=== PATIENT | male | born 1945 | race Hispanic/Latino ===

== ENCOUNTER 2018-12-12 21:14 | Inpatient (IN) | payer MEDICARE, OTHER ==
[2018-12-12] MEDS ORDERED: Clindamycin/D5W 900 mg/50 ml Premix Bag ONE (23:17)
[2018-12-12 23:25] LABS: ALT (SGPT) Less than 7 U/L (8-55); AST (SGOT) 8 U/L (5-34); Albumin 3.2 g/dL (3.4-4.8); Alkaline Phosphatase 73 U/L (40-110); Anion Gap 19 mmol/L (10-20); BUN (Urea Nitrogen) 31 mg/dL (8.4-25.7); Bilirubin, Total 0.5 mg/dL (0.2-1.2); Calc. Creatinine Clearance 0 mL/min (70-130); Calcium 8.2 mg/dL (7.8-10.44); Carbon Dioxide 22 mmol/L (23-31); Chloride 99 mmol/L (98-107); Estimated GFR-MDRD 6; Globulin 3.4 g/dL (2.4-3.5); Glucose 97 mg/dL (83-110); Potassium 4.7 mmol/L (3.5-5.1); Protein, Total 6.6 g/dL (5.8-8.1); Sodium 135 mmol/L (136-145)
[2018-12-13 01:11] VITALS: BMI 24.8
[2018-12-13] MEDS ORDERED: Clindamycin/D5W 900 MG in Premix Bag 1 BAG IVPB SCH (08:00)
[2018-12-13] MEDS: Sodium Chloride 0.9% 1,000 ML IV SCH ×3 (08:35→18:39)
[2018-12-13] MEDS: Morphine 2 MG/ML SYRINGE SLOW IVP PRN ×2 (08:35→16:16)
--- NOTE | 2018-12-13 09:03 | HP ---
CHIEF COMPLAINT: Neck pain. HISTORY OF PRESENT ILLNESS: The patient is a 73-year-old male, who speaks Kiswahili only, who presented to the emergency room with above-mentioned complaints. Apparently, he had dental procedure done 3 days ago. He had two teeth pulled out and he started having some pain in the neck. There was no fever or chills. The pain was rated around 2 to 3. Also, he complained about some headache and difficulty of swallowing. Headache was mainly located in the occipital area. Otherwise, he does not have much complaints to offer except for inability to eat secondary to the painful process going on in his neck. PAST MEDICAL HISTORY: Positive for 1. Tremor. 2. Hypertension. 3. End-stage renal disease, on hemodialysis. 4. Diabetes mellitus type 2. PAST SURGICAL HISTORY: 1. Left shoulder surgery. 2. Right arm shunt for hemodialysis. SOCIAL HISTORY: He never smoked. He does not drink alcohol. He does not use any drugs. FAMILY HISTORY: The patient does not remember how his parents at what ages. ALLERGIES: NONE. MEDICATIONS: 1. Amlodipine 10 mg once a day. 2. Aspirin 81 mg once a day. 3. Clonazepam 0.5 mg at bedtime. PRIMARY CARE PHYSICIAN: Dr. Sharp from [facility]. SURROGATE DECISION MAKER: The patient's daughter Mariposa Garcia. REVIEW OF SYSTEMS: All 14 systems were reviewed and only those symptoms mentioned in the HPI are positive, otherwise negative. PHYSICAL EXAMINATION: VITAL SIGNS: Blood pressure is 133/54, pulse is 72, temperature is 97.2, O2 saturation is 91% on room air. GENERAL: He is not in any distress during my visit. HEENT: His head is atraumatic and normocephalic. Eyes are PERRLA. Sclerae are nonicteric. Conjunctivae pinkish. Oral mucosa is moist. He is not able to open his mouth all the way and protrude his tongue. NECK: There is an approximately 1 to 1.5 inch mass in the upper part of the neck just under the mandibular bone on the right side, tender to touch and palpation. LUNGS: Clear. HEART: S1, S2 normal. No S3. No S4. No any murmur. ABDOMEN: Soft and nontender. Bowel sounds are present. No organomegaly. EXTREMITIES: No clubbing, cyanosis or edema. NEUROLOGIC: He is alert and oriented x4. There is no any motor deficits present. Cranial nerves are intact. LABORATORY DATA: Labs showed sodium of 135, potassium 4.7, chloride 99, CO2 of 22, BUN 31, creatinine 8.74, ALT less than 7, albumin 3.2, and the rest of chemistry is within normal limits. EKG is not present on the chart. CBC showed white count of 12.0, hemoglobin 11.7, hematocrit 35.7. CT of the neck soft tissue with contrast showed a large heterogeneously enhancing fluid collection in the right side of the floor of the mouth extending into the right submandibular region, most likely representing an abscess and airways remain patent. Also there is reactive adenopathy in the right side of the neck. IMPRESSION: 1. Post dental procedure of right-sided neck abscess. 2. Hypertension. 3. Diabetes mellitus. 4. End-stage renal disease, on hemodialysis. PLAN: Admission to the medical floor. Condition is fair. Activity bedrest and bathroom privileges with assistance. IV fluids, normal saline 100 mL/hour, morphine 2 mg every 4 hours IV push slowly for pain management. Oral surgeon consult and Nephrology consult for hemodialysis if it is necessary on Saturday. Apparently, he had dialysis on Saturday. Job ID: [id number]
[2018-12-13] MEDS ORDERED: PHENYLEPHRINE-NS 100 MCG/ML 10 ML SYRINGE ONE (10:40)
[2018-12-13] MEDS ORDERED: Rocuronium Bromide 10 MG/ML (10ML VIAL) ONE (10:40)
[2018-12-13] MEDS ORDERED: Lidocaine 1% PF 5 ML VIAL ONE (10:40)
[2018-12-13] MEDS ORDERED: Glycopyrrolate 0.2 MG/ML 5 ML SYRINGE ONE (10:40)
[2018-12-13] MEDS ORDERED: Ondansetron PF 4 MG/2 ML Vial ONE (10:40)
[2018-12-13] MEDS ORDERED: Labetalol HCl 100 MG/20 ML VIAL ONE ×2 (10:40→12:47)
[2018-12-13] MEDS ORDERED: Metoclopramide HCl 10 MG/2 ML VIAL ONE (10:40)
[2018-12-13] MEDS ORDERED: Lidocaine 1% w/Epinephrine 1:100K 20 ML VIAL ONE (10:49)
[2018-12-13] MEDS ORDERED: Chlorhexidine Gluconate 15 ML UDCUP SSP ONE (10:49)
[2018-12-13] MEDS ORDERED: Fentanyl 100 MCG/2 ML VIAL ONE (10:51)
[2018-12-13] MEDS ORDERED: Phenylephrine HCL 10 MG/ML VIAL ONE (10:51)
[2018-12-13] MEDS ORDERED: Famotidine/PF 20 mg/2ml Vial ONE (10:51)
[2018-12-13] MEDS ORDERED: Bacitracin Zinc Ointment 30 gm TUBE ONE (10:52)
[2018-12-13] MEDS ORDERED: Sodium Chloride 0.9% 10 ML ONE (11:45)
[2018-12-13] MEDS ORDERED: Promethazine HCl 25 MG/ML VIAL SLOW IVP PRN (12:03)
[2018-12-13] MEDS ORDERED: PACU-Morphine 4MG/ML VIAL SLOW IVP PRN (12:03)
[2018-12-13] MEDS ORDERED: Promethazine HCl 25 MG/ML VIAL IM PRN (12:03)
[2018-12-13] MEDS ORDERED: hydrALAZINE 20 MG/ML VIAL ONE (12:47)
[2018-12-13] MEDS: Chlorhexidine Gluconate 15 ML UDCUP SSP SCH (20:07)
[2018-12-13] MEDS ORDERED: Prevnar 13-Val Conj/PF 0.5 ML SYRINGE IM ONE (21:00)
[2018-12-13] MEDS ORDERED: FLU VACC TS2019-20(65YR UP)/PF 180 MCG/0.5 ML SYRINGE IM ONE (21:00)
[2018-12-14] MEDS: Sodium Chloride 0.9% 1,000 ML IV SCH ×3 (03:53→21:56)
[2018-12-14 05:29] LABS: #Basophils 0.1 thou/uL (0.0-0.2); #Eosinphils 0.1 thou/uL (0.0-0.7); #Lymphocytes 1.5 thou/uL (1.20-3.40); #Monocytes 1.4 thou/uL (0.11-0.59); #Neutrophils 9.1 thou/uL (1.40-6.50); %Basophils 0.5 % (0.0-1.0); %Eosinophils 0.4 % (0.0-10.0); %Lymphocytes 12.2 % (21.0-51.0); %Monocytes 11.2 % (0.0-10.0); %Neutrophils 75.7 % (42.0-75.0); Hemoglobin 10.3 g/dL (14.0-18.0); Mean Corpuscular HGB CONC 34.1 g/dL (32.0-36.0); Mean Corpuscular Hemoglobin 35.5 pg (27.0-31.0); Mean Platelet Volume 7.9 fL (7.4-10.4); Platelet Count 200 thou/uL (130-400); RBC Distribution Width 12.2 % (11.5-14.5); Red Blood Cell (RBC) Count 2.91 mill/uL (4.70-6.10)
[2018-12-14 05:51] LABS: Anion Gap 18 mmol/L (10-20); BUN (Urea Nitrogen) 45 mg/dL (8.4-25.7); Calc. Creatinine Clearance 6 mL/min (70-130); Calcium 7.9 mg/dL (7.8-10.44); Carbon Dioxide 23 mmol/L (23-31); Chloride 100 mmol/L (98-107); Estimated GFR-MDRD 5; Glucose 104 mg/dL (83-110); Potassium 4.8 mmol/L (3.5-5.1); Sodium 136 mmol/L (136-145)
[2018-12-14] MEDS ORDERED: Vancomycin HCl 1 GM in Premix Bag 1 BAG IVPB SCH (08:15)
[2018-12-14] MEDS ORDERED: Vancomycin HCl 500 MG in Sodium Chloride 0.9% 100 ML IVPB SCH (08:15)
[2018-12-14] MEDS ORDERED: HOLD VANCOMYCIN FOR LEVEL >20 FS SCH (08:15)
[2018-12-14] MEDS ORDERED: Vancomycin HCl 250 MG in Sodium Chloride 0.9% 100 ML IVPB SCH (08:15)
[2018-12-14] MEDS ORDERED: Vancomycin HCl 750 MG in Sodium Chloride 0.9% 250 ML 250 ML IVPB SCH (08:15)
[2018-12-14] MEDS: Chlorhexidine Gluconate 15 ML UDCUP SSP SCH ×2 (09:23→20:04)
[2018-12-14] MEDS: Piperacillin/Tazobactam 2.25 GM in Sodium Chloride 0.9% 100 ML IVPB SCH ×2 (11:38→21:56)
--- NOTE | 2018-12-14 12:30 | PRG ---
DATE OF SERVICE: 12/14/2018 SUBJECTIVE: The patient is seen and examined at the bedside. His daughter is present in the room during my visit. There was no any unexpected events overnight. He had his surgery done yesterday by ENT. OBJECTIVE: VITAL SIGNS: Blood pressure is 126/61, pulse is 78, temperature is 98.8, respirations 16, O2 saturation is 96% on room air. HEENT: His head is atraumatic and normocephalic. Eyes are PERRLA. Sclerae are nonicteric. Oral mucosa is moist. He has a problem to open his mouth all way because of the recent surgery. There is a drain in the right side of the neck and a dressing over his neck. LUNGS: Clear. HEART: S1, S2 normal. No S3. No S4. ABDOMEN: Soft, nontender, nondistended. EXTREMITIES: No clubbing, cyanosis, or edema. NEUROLOGIC: He follows my commands. He moves his all 4 extremities. LABORATORY DATA: Labs showed white count of 12.0, hemoglobin 10.3, hematocrit 30.3, platelet count is 200, MCV is 104. Normal electrolytes. BUN of 45, creatinine 10.96. Glycemia is ranging from 60 to 143. Calcium is 7.9. Microbiology, preliminary report, Gram stain showed moderate WBCs, rare epithelial cells and few gram-positive rods. Culture, few mixed skin jitendra present and results on anaerobe pending. IMPRESSION: 1. Submandibular abscess status post incision and drainage by ENT. 2. Hypertension. 3. Diabetes mellitus type 2. 4. End-stage renal disease, on hemodialysis. PLAN: His diet will be advanced as tolerated. He will be on vancomycin and Zosyn, morphine p.r.n. I am going to decrease the rate of IV fluids to 75. Nephrology will be consulted for hemodialysis. Most likely, he will go home after dialysis on Saturday. Job ID: [id number]
[2018-12-14 13:42] LABS: Vitamin B12 Greater than 2000 pg/mL (211-911)
[2018-12-14] MEDS ORDERED: Acetaminophen 325 MG TAB PO PRN (22:20)
--- NOTE | 2018-12-14 23:55 | OP ---
DATE OF PROCEDURE: 12/13/2018 PREOPERATIVE DIAGNOSIS: Right submandibular abscess secondary to odontogenic source. POSTOPERATIVE DIAGNOSIS: Right submandibular abscess secondary to odontogenic source. PROCEDURE PERFORMED: Transcervical incision and drainage of right submandibular abscess. INDICATIONS FOR PROCEDURE: This is a 73-year-old male with significant medical comorbidities including end-stage renal disease on hemodialysis, who presents with worsening neck swelling and abscess, status post removal of infected teeth. The patient was brought to the operating room at this time for incision and drainage of the abscess. DESCRIPTION OF PROCEDURE: The patient was identified in the preoperative holding area and all questions were answered. The patient was taken to the operating room, transferred to the operating table in a supine position. A general anesthetic was induced by the Anesthesia team and a surgical time-out was performed. The head and neck were prepped and draped in sterile fashion. A planned incision site was marked for approximately 2 to 2.5 cm to the inferior border of the mandible in the right submandibular region. The incision site was infiltrated with 1% lidocaine with 1:100,000 epinephrine. The oral cavity was irrigated and suctioned free of debris at this time, and a throat pack was placed. The mandibular extraction sites were curetted and clean at this time. Attention was turned back to the neck and a skin incision was made with a 15 blade. Bovie cautery was used to obtain hemostasis and Bovie cautery along with hemostats was used to dissect down through layers until the platysma was incised. Sandra hemostats were then used to bluntly dissect superiorly toward the inferior border of the mandible. This dissection proceeded into the inferior border of the mandible was reached and entrance into the abscess was obtained. Upon entrance into the abscess, a purulent-sanguineous discharge was obtained and a culture swab was taken and sent for examination. Using combination of hemostats and fingers, blunt dissection was used to open up all loculations of the abscess to ensure full decompression. After this was accomplished, our attention was turned back intraorally and the sockets were again evaluated and curetted further. At this time, palpation revealed decompressions of the palpable fluid collections. Attention was turned toward irrigation of the abscess. A 10 flat AMMON drain was introduced into the abscess to the transcervical approach and the abscess was irrigated copiously with bacitracin infused normal saline. After copious irrigation, a quarter-inch [place] drain was advanced into the abscess and sewn to the skin of the neck using a nylon drain suture. The sockets intraorally were irrigated with bacitracin infused normal saline as well, and the oral cavity and oropharynx were suctioned free of fluids and debris, and the throat pack was removed. A Kerlix fluff was placed over the right posterior mandible with a long extraoral tail to catch any discharge or bleeding and oral airway was placed by the Anesthesia Service. The patient's face and neck were cleaned, and the neck wound was dressed with ABD pad and Kerlix neck dressing. ESTIMATED BLOOD LOSS: 15 mL. INTRAVENOUS FLUIDS: Please see anesthetic record. COMPLICATIONS: None. DRAINS: Quarter-inch Bunny drain to the right submandibular space. IMPLANTS: None. SPECIMENS: Purulence from the right submandibular abscess sent for culture. FINDINGS: Large right submandibular abscess which appears to track toward the extraction site of tooth #31 and #32 region. DISPOSITION: The patient tolerated the procedure well. He was extubated and transferred to the recovery room in good condition. Job ID: [id number]
--- NOTE | 2018-12-15 00:28 | CON ---
DATE OF CONSULTATION: 12/13/2018 CONSULTING PHYSICIAN: Dr. Wharton in the emergency room. HISTORY OF PRESENT ILLNESS: This is a 73-year-old male who presented to the emergency room due to progressing swelling of the right floor of mouth and neck region. The patient had 2 teeth taken off approximately 5 days ago and subsequently had a 3rd tooth removed approximately 2-3 days ago due to pain and symptoms. After the 3rd tooth was pulled, the patient began to have increasing swelling, difficulty opening and pain, which prompted his arrival at the hospital. Of note, the patient has end-stage renal disease on dialysis, and his last dialysis was yesterday. PAST MEDICAL HISTORY: 1. Hypertension. 2. End-stage renal disease. 3. Type 2 diabetes, which is untreated. PAST SURGICAL HISTORY: 1. Left shoulder surgery. 2. Dialysis shunt, right arm. HOME MEDICATIONS: 1. Amlodipine. 2. Aspirin 81 mg. 3. Clonazepam. ALLERGIES: NO KNOWN DRUG ALLERGIES. SOCIAL HISTORY: Denies smoking, alcohol, or drugs. REVIEW OF SYSTEMS: Pain in the right jaw, floor of mouth, and submandibular region, difficulty opening. PHYSICAL EXAMINATION: VITAL SIGNS: Blood pressure 132/54, pulse 72, temperature 97.2, 91% oxygen on room air. GENERAL: Alert, oriented x3, in no apparent distress. HEAD AND NECK: The patient has a moderate edema and induration in the right submandibular region. Externally, the patient has no other noted abnormalities. On intraoral exam, patient has what appears to be purulent discharge in the right posterior jaw region. The patient has extraction sockets in the right posterior maxilla and 2 in the right posterior mandible. The patient has significant edema and induration in the right floor of mouth region. Maximum interincisal opening is limited and is difficult to fully visualize the oropharynx. LABORATORY DATA: CBC: The patient has a white blood cell count of 12, hemoglobin 11.7, hematocrit 35.7. IMAGING: CT scan of the neck at an outside hospital shows a multiloculated large right submandibular abscess, which appears to extend up to the inner aspect of the lower jaw and tooth 31, 32 area near the recent extraction site. The airway is deviated to the left; however the airway appears to be patent throughout. ASSESSMENT: Right submandibular space abscess secondary to odontogenic source. PLAN: 1. The patient is to be kept n.p.o. and will be taken to the operating room later today for incision and drainage of the right submandibular abscess. 2. The patient should be continued on IV antibiotics and Peridex mouth rinses b.i.d. 3. The patient was consented for the procedure. Job ID: [id number]
--- NOTE | 2018-12-15 00:34 | PRG ---
DATE OF SERVICE: 12/14/2018 SUBJECTIVE: The patient reports feeling better today, status post incision and drainage of right submandibular abscess yesterday. The patient reports decreased swelling, decreased pain. On physical exam, it was noted that the swelling and induration involving the right submandibular space has decreased significantly. There is mild purulent type drainage on the neck dressing, but relatively clean. The Bunny drain is in place. Maximum interincisal opening is increased and floor of mouth is significantly less swollen. The extraction sites were hemostatic. His vital signs show a blood pressure of 126/61, temperature of 98.8, pulse is 78, saturating 96% oxygen on room air. Cultures are pending, but gram-stain showed few gram-positive rods and pending culture results showed a few mixed skin jitendra. CBC today showed a white blood cell count of 12, hemoglobin 10 and platelet count 200. ASSESSMENT: A 73-year-old male, postoperative day #1 status post incision and drainage of right submandibular abscess, who is improving nicely. PLAN: 1. Continue intravenous vancomycin and Zosyn along with Peridex oral rinses b.i.d. 2. Encouraged ambulation. 3. The patient is expected to respond somewhat slowly based on his end-stage renal disease and what appears to be relative noncompliance with management of his diabetes. The patient was probably kept in-house for IV antibiotics for a while longer as we evaluate his progress status post incision and drainage of the abscess. The neck drain will be kept at this time. Job ID: [id number]
[2018-12-15] MEDS: Sodium Chloride 0.9% 1,000 ML IV SCH ×2 (10:00→20:59)
[2018-12-15] MEDS: Chlorhexidine Gluconate 15 ML UDCUP SSP SCH ×2 (12:18→20:00)
[2018-12-15 12:41] LABS: #Basophils 0.1 thou/uL (0.0-0.2); #Eosinphils 0.1 thou/uL (0.0-0.7); #Lymphocytes 1.3 thou/uL (1.20-3.40); #Monocytes 0.9 thou/uL (0.11-0.59); #Neutrophils 10.6 thou/uL (1.40-6.50); %Basophils 0.5 % (0.0-1.0); %Lymphocytes 10.3 % (21.0-51.0); %Monocytes 6.9 % (0.0-10.0); %Neutrophils 81.4 % (42.0-75.0); Hemoglobin 11.6 g/dL (14.0-18.0); Mean Corpuscular HGB CONC 32.4 g/dL (32.0-36.0); Mean Corpuscular Hemoglobin 33.8 pg (27.0-31.0); Mean Platelet Volume 8.2 fL (7.4-10.4); Platelet Count 239 thou/uL (130-400); RBC Distribution Width 12.4 % (11.5-14.5); Red Blood Cell (RBC) Count 3.43 mill/uL (4.70-6.10)
[2018-12-15 13:03] LABS: Anion Gap 17 mmol/L (10-20); BUN (Urea Nitrogen) 23 mg/dL (8.4-25.7); Calc. Creatinine Clearance 10 mL/min (70-130); Calcium 8.8 mg/dL (7.8-10.44); Carbon Dioxide 22 mmol/L (23-31); Chloride 100 mmol/L (98-107); Estimated GFR-MDRD 9; Glucose 83 mg/dL (83-110); Potassium 4.3 mmol/L (3.5-5.1); Sodium 135 mmol/L (136-145)
[2018-12-15 13:11] LABS: Vancomycin, Random 23.5 ug/mL (See Comment)
[2018-12-15] MEDS: Piperacillin/Tazobactam 2.25 GM in Sodium Chloride 0.9% 100 ML IVPB SCH ×2 (13:38→20:59)
[2018-12-15] MEDS ORDERED: Amlodipine 10 MG TAB PO SCH (14:30)
--- NOTE | 2018-12-15 14:52 | PRG ---
DATE OF SERVICE: 12/15/2018 SUBJECTIVE: The patient is seen and examined at the bedside. He just came back from hemodialysis session. The daughter noticed that he became very confused. He tried to pull out his IV and got agitated last night. OBJECTIVE: VITAL SIGNS: Blood pressure is 177/71, pulse is 83, temperature is 98.2, respirations 18, O2 saturation is 95% on room air, temperature is 98.2, maximal temperature is 100.2. HEENT: His pupils are responding to light properly. Sclerae are nonicteric. Oral mucosa is slightly dry. NECK: He has dressing over his neck. A drain is in place. LUNGS: Clear. HEART: S1 and S2 normal. No S3. No S4. ABDOMEN: Soft, nontender, nondistended. EXTREMITIES: No clubbing, cyanosis, or edema. NEUROLOGIC: He does not follow my commands. He is confused. He is able to move his all 4 extremities. LABORATORY DATA: White count of 13.0, hemoglobin of 11.6, hematocrit 35.7, and platelet count is 239,000. Sodium of 135, potassium 4.3, chloride 100, CO2 of 22, BUN 23, creatinine 6.46, glycemia is ranging from 89 to 156, calcium 8.8. Vancomycin random level 23.5. Vitamin B12 greater than 2000 and folate 4.50. Microbiology from abscess showed moderate wbc's, rare epithelial cells, and few gram-positive rods, and culture is still pending. IMPRESSION: 1. Submandibular abscess, status post incision and drainage, currently on vancomycin and Zosyn with drain in place. 2. Hypertension. He is restarted on his amlodipine. 3. Altered mental status. We are going to put him back on his Klonopin since he was not really able to rest properly last night and most likely this was one of the triggers, which caused his altered mental status this morning. 4. End-stage renal disease, on hemodialysis. He just finished one of his sessions scheduled for Saturday. We will make sure that he is getting some rest tonight. Hopefully, this is going to help his altered mental status. The case was discussed with the daughter, who was present in the room during my visit and we are awaiting for his culture results. In the meantime, we will continue his IV antibiotics. Job ID: [id number]
[2018-12-15] MEDS: clonazePAM 1 MG TAB PO SCH (20:00)
[2018-12-16] MEDS: Sodium Chloride 0.9% 1,000 ML IV SCH ×2 (05:22→17:16)
[2018-12-16 05:23] LABS: #Eosinphils 0.2 thou/uL (0.0-0.7); #Lymphocytes 1.2 thou/uL (1.20-3.40); #Monocytes 0.8 thou/uL (0.11-0.59); #Neutrophils 6.6 thou/uL (1.40-6.50); %Basophils 0.4 % (0.0-1.0); %Eosinophils 2.4 % (0.0-10.0); %Lymphocytes 13.2 % (21.0-51.0); %Monocytes 8.6 % (0.0-10.0); %Neutrophils 75.3 % (42.0-75.0); Hemoglobin 9.8 g/dL (14.0-18.0); Mean Corpuscular HGB CONC 33.2 g/dL (32.0-36.0); Mean Corpuscular Hemoglobin 34.6 pg (27.0-31.0); Mean Platelet Volume 7.9 fL (7.4-10.4); Platelet Count 220 thou/uL (130-400); RBC Distribution Width 12.2 % (11.5-14.5); Red Blood Cell (RBC) Count 2.83 mill/uL (4.70-6.10); White Blood Cell (WBC) Count 8.8 thou/uL (4.8-10.8)
[2018-12-16 05:39] LABS: Anion Gap 17 mmol/L (10-20); BUN (Urea Nitrogen) 34 mg/dL (8.4-25.7); Calc. Creatinine Clearance 8 mL/min (70-130); Carbon Dioxide 22 mmol/L (23-31); Chloride 101 mmol/L (98-107); Estimated GFR-MDRD 7; Glucose 96 mg/dL (83-110); Potassium 4.2 mmol/L (3.5-5.1); Sodium 136 mmol/L (136-145)
[2018-12-16] MEDS: Piperacillin/Tazobactam 2.25 GM in Sodium Chloride 0.9% 100 ML IVPB SCH ×2 (08:43→21:37)
[2018-12-16] MEDS: Folic Acid 1 MG TAB PO SCH (08:44)
[2018-12-16] MEDS: Saccharomyces boulardii 250 MG CAP PO SCH (08:44)
[2018-12-16] MEDS: Chlorhexidine Gluconate 15 ML UDCUP SSP SCH ×2 (08:44→21:37)
[2018-12-16] MEDS: Amlodipine 10 MG TAB PO SCH (08:44)
[2018-12-16] MEDS ORDERED: Amlodipine 10 MG TAB PO SCH (09:00)
--- NOTE | 2018-12-16 15:08 | PRG ---
DATE OF SERVICE: 12/16/2018 SUBJECTIVE: The patient is seen and examined at the bedside. The patient's and the daughter are present in the room during my visit. All questions answered to the satisfaction. OBJECTIVE: VITAL SIGNS: Blood pressure is 146/66, pulse is 73, temperature is 98.1, maximal temperature is 98.5, respiratory rate is 16, and O2 saturation is 95% on room air. HEENT: His pupils are responding to light properly. Sclerae are nonicteric. Conjunctivae pinkish. Oral mucosa is moist. NECK: With the dressing and the drain in place. LUNGS: Clear. HEART: S1 and S2 normal. ABDOMEN: Soft, nontender, and nondistended. EXTREMITIES: No clubbing, cyanosis, or edema. NEUROLOGIC: He is alert and oriented x3. There is no any motor or sensory deficits. LABORATORY DATA: Labs showed white count of 8.8, hemoglobin 9.8, hematocrit 29.5, and platelet count is 220,000. Sodium of 136, potassium 4.2, chloride 101, CO2 of 22, BUN 34, creatinine 7.94, glycemia is ranging from 93 to 125. Bacterial culture from the abscess specimen showed few mixed skin jitendra present and anaerobic culture, possible anaerobe present, isolation in progress. IMPRESSION AND PLAN: 1. Right submandibular abscess status post incision and drainage on vancomycin and Zosyn. Drain in place. 2. Hypertension. Blood pressure is under better control with amlodipine. 3. Altered mental status, resolved. We put him back on his Klonopin. He slept well last night and all his hallucinations went away. 4. End-stage renal disease, on hemodialysis. He will have HD session tomorrow and most likely we will be able to send him home after that on oral antibiotics. Job ID: [id number]
[2018-12-16] MEDS: clonazePAM 1 MG TAB PO SCH (21:37)
[2018-12-17] MEDS: Sodium Chloride 0.9% 1,000 ML IV SCH ×2 (01:30→12:15)
[2018-12-17 08:04] LABS: Vancomycin, Random 20.5 ug/mL (See Comment)
[2018-12-17 08:11] LABS: Fungus Stain Final report (.)
[2018-12-17] MEDS: Saccharomyces boulardii 250 MG CAP PO SCH (12:12)
[2018-12-17] MEDS: Amlodipine 10 MG TAB PO SCH (12:12)
[2018-12-17] MEDS: Piperacillin/Tazobactam 2.25 GM in Sodium Chloride 0.9% 100 ML IVPB SCH (12:13)
[2018-12-17] MEDS: Chlorhexidine Gluconate 15 ML UDCUP SSP SCH (12:14)
[2018-12-17] MEDS: Folic Acid 1 MG TAB PO SCH (12:14)
[2018-12-17 14:55] VITALS: TEMP 98.1
[2018-12-17 15:04] VITALS: BP 156/65
--- NOTE | 2018-12-17 15:52 | DIS ---
DATE OF ADMISSION: 12/13/2018 DATE OF DISCHARGE: 12/17/2018 DIAGNOSIS AT THE TIME OF DISCHARGE: 1. Submandibular abscess status post incision and drainage. 2. Hypertension. 3. Altered mental status resolved. 4. End-stage renal disease, on hemodialysis 3 times a week. 5. Macrocytic anemia. 6. Folic acid deficiency. CONSULTANTS: Dr. Judd Cedeno, oral surgeon and Dr. Robb for Nephrology Service. HOSPITAL COURSE: The patient is a 73-year-old male, who was admitted to the hospital with neck pain, which was going on for several days prior to this admission. Apparently, he had dental procedure, was done 3 days ago prior to the admission and he started having some pain in the neck without any chills or fever. Also, he had some headaches and difficulty of swallowing. He came to the emergency room to be evaluated, and his CT of the neck showed soft tissue fluid collection in the right side of the floor of the mouth extending into the right submandibular region, most likely representing an abscess, but airways remained patent. There was reactive adenopathy in the right side of the neck. At the time of admission, his labs showed normal chemistry, except for creatinine, which was 8.74. EKG was normal. CBC showed normal white count of 12 and hemoglobin of 11.7. The patient got admitted to the floor. He was placed on IV fluids, IV morphine q.4 hours, and general surgeon consult was requested along with Nephrology consult for hemodialysis. The patient was seen by Dr. Cedeno for evaluation, and he had incision and drainage done of right submandibular abscess, which was secondary to odontogenic source. This was done through a transcervical incision and postprocedure phase was complicated by the patient's altered mental status, which resolved in 24 hours as soon as we put him back on his Klonopin and he was able to get enough rest at night. Today, he is doing well. He had 2 dialysis done during this hospitalization, supervised by Dr. Robb. He just finished the last one, and he is going to be discharged home with recommendation to stay on the low-salt diet. Activities as tolerated. He is going to follow up with his oral surgeon tomorrow morning. His drain is still in place. MEDICATIONS: At the time of discharge, 1. Clonazepam 1 mg at bedtime. 2. Amlodipine 10 mg once a day. 3. Pantoprazole 40 mg once a day. 4. Florastor 250 mg once a day. 5. Folic acid 1 mg once a day. 6. Chlorhexidine gluconate twice a day, that is for swish and spit. 7. Augmentin 875 mg twice a day for 10 days. 8. Tylenol p.r.n. for the pain. His cultures came back negative. The discharge time is less than 30 minutes. Job ID: [id number]
== END 2018-12-17 17:04 | disposition home or self-care (01) | DRG 856 ==
LOC: ERS 21:14 → T4-A 12-13 00:53
PROVIDERS: ADMIT Hospitalist; ATTEND Hospitalist
PROC: 0J910ZZ Drainage of Face Subcutaneous Tissue and Fascia, Open Approach (ICD-10-PCS; principal; 2018-12-13)
DX: T81.41XA Infection following a procedure, superficial incisional surgical site, initial encounter (principal); N18.6 End stage renal disease; K12.2 Cellulitis and abscess of mouth; I12.0 Hypertensive chronic kidney disease with stage 5 chronic kidney disease or end stage renal disease; R41.82 Altered mental status, unspecified; E11.22 Type 2 diabetes mellitus with diabetic chronic kidney disease; Z99.2 Dependence on renal dialysis; E63.8 Other specified nutritional deficiencies; D53.9 Nutritional anemia, unspecified
CPT/HCPCS: 36415; 36416; 80048; 80053; 80202; 82607; 82746; 85025; 87070; 87102; 87205; 87206; 90935; 93005; 96365; G0257; J0360; J2001; J2270; J2370; J2405; J2543; J2765; J3010; J3370; J3490; S0028

== ENCOUNTER 2019-03-11 12:18 | Emergency (ER) | payer MEDICARE ==
[2019-03-11 12:55] LABS: #Eosinphils 0.2 thou/uL (0.0-0.7); #Lymphocytes 1.4 thou/uL (1.20-3.40); #Monocytes 0.7 thou/uL (0.11-0.59); #Neutrophils 4.9 thou/uL (1.40-6.50); %Basophils 0.4 % (0.0-1.0); %Eosinophils 2.4 % (0.0-10.0); %Lymphocytes 19.7 % (21.0-51.0); %Monocytes 9.1 % (0.0-10.0); %Neutrophils 68.5 % (42.0-75.0); Hemoglobin 10.9 g/dL (14.0-18.0); Mean Corpuscular HGB CONC 33.2 g/dL (32.0-36.0); Mean Corpuscular Hemoglobin 32.6 pg (27.0-31.0); Mean Corpuscular Volume 98.4 fL (78.0-98.0); Mean Platelet Volume 8.1 fL (7.4-10.4); Platelet Count 212 thou/uL (130-400); RBC Distribution Width 13.1 % (11.5-14.5); Red Blood Cell (RBC) Count 3.34 mill/uL (4.70-6.10); White Blood Cell (WBC) Count 7.2 thou/uL (4.8-10.8)
[2019-03-11 13:16] LABS: ALT (SGPT) Less than 7 U/L (8-55); AST (SGOT) 6 U/L (5-34); Albumin 3.5 g/dL (3.4-4.8); Alkaline Phosphatase 92 U/L (40-110); Anion Gap 25 mmol/L (10-20); BUN (Urea Nitrogen) 102 mg/dL (8.4-25.7); Bilirubin, Total 0.4 mg/dL (0.2-1.2); Calc. Creatinine Clearance 0 mL/min (70-130); Calcium 9.2 mg/dL (7.8-10.44); Carbon Dioxide 16 mmol/L (23-31); Chloride 103 mmol/L (98-107); Estimated GFR-MDRD 3; Globulin 3.8 g/dL (2.4-3.5); Glucose 82 mg/dL (83-110); Potassium 5.5 mmol/L (3.5-5.1); Protein, Total 7.3 g/dL (5.8-8.1); Sodium 138 mmol/L (136-145)
[2019-03-11 13:31] LABS: Phosphorus 8.6 mg/dL (2.3-4.7)
[2019-03-11 15:24] LABS: Hep B Surf Ag Non-Reactive S/CO (NonReactive)
[2019-03-11 15:25] LABS: HBSAg Index 0.19 S/CO (0-0.99)
== END 2019-03-11 22:17 | disposition home or self-care (01) ==
LOC: ERS 12:18
DX: E87.5 Hyperkalemia (principal); E11.22 Type 2 diabetes mellitus with diabetic chronic kidney disease; I12.0 Hypertensive chronic kidney disease with stage 5 chronic kidney disease or end stage renal disease; N18.6 End stage renal disease; Z99.2 Dependence on renal dialysis; Z79.899 Other long term (current) drug therapy
CPT/HCPCS: 36415; 80053; 83735; 84100; 85025; 87340; 99285

== ENCOUNTER 2019-09-28 09:11 | Emergency (ER) | payer MEDICARE, OTHER ==
[2019-09-29 14:30] LABS: SARS-CoV-2 MS2 Positive; SARS-CoV-2 N Gene Positive; SARS-CoV-2 S Gene Positive; SARS-CoV-2 orf1ab Positive
== END 2019-09-28 10:23 | disposition home or self-care (01) ==
LOC: ERS 09:11
DX: U07.1 COVID-19 (principal); E11.22 Type 2 diabetes mellitus with diabetic chronic kidney disease; I12.0 Hypertensive chronic kidney disease with stage 5 chronic kidney disease or end stage renal disease; N18.6 End stage renal disease; Z99.2 Dependence on renal dialysis
CPT/HCPCS: 99283; U0003; 87635